=== PATIENT | female | born 1940 | race Caucasian/White ===

== ENCOUNTER 2018-05-01 05:24 | Day surgery (SDC) | payer OTHER ==
[2018-05-01] MEDS ORDERED: morphine SULFATE/PF (10 MG/10 ML) INJ (07:00)
[2018-05-01] MEDS ORDERED: PROPOFOL 20 ML (07:45)
[2018-05-01] MEDS ORDERED: MIDAZOLAM 1 MG/ML 2 ML INJ (07:45)
[2018-05-01] MEDS ORDERED: CEFAZOLIN 1 GM INJ (07:45)
[2018-05-01] MEDS ORDERED: ROCURONIUM 50 MG INJ (07:45)
[2018-05-01] MEDS ORDERED: ROPIVACAINE 0.5 % 30 ML VIAL (07:46)
[2018-05-01] MEDS ORDERED: FENTAnyl 50 MCG/ML VIAL (07:46)
[2018-05-01] MEDS ORDERED: PHENYLephrine (100 MCG/ML) 5ML SYG ×2 (08:01→09:20)
[2018-05-01] MEDS: EPINEPHrine 1 MG/ML 30 ML INJ IRR (08:30)
[2018-05-01] MEDS: morphine SULFATE/PF (10 MG/10 ML) INJ (08:30)
[2018-05-01] MEDS ORDERED: hydrALAzine 20 MG INJ IV (09:00)
[2018-05-01] MEDS ORDERED: METOCLOPRAMIDE 10 MG INJ IV (09:00)
[2018-05-01] MEDS ORDERED: ONDANSETRON 4 MG INJ IV (09:00)
[2018-05-01] MEDS ORDERED: EPHEDrine SULFATE 50 MG/5 ML SYG IV (09:00)
[2018-05-01] MEDS ORDERED: MEPERIDINE 25 MG INJ IV (09:00)
[2018-05-01] MEDS ORDERED: DIPHENHYDRAMINE 50 MG INJ IV (09:00)
[2018-05-01] MEDS ORDERED: OXYCODONE/ACETAMINOPHEN (5/325) TAB PO ×2 (09:00)
[2018-05-01] MEDS ORDERED: LABETALOL HCL 20MG INJ IV (09:00)
[2018-05-01] MEDS ORDERED: FENTAnyl 50 MCG/ML VIAL IV ×2 (09:00)
[2018-05-01] MEDS ORDERED: HYDROmorphONE 1 MG/5 ML IV SYRINGE IV ×2 (09:00)
[2018-05-01] MEDS ORDERED: METOCLOPRAMIDE 10 MG INJ (09:07)
[2018-05-01] MEDS ORDERED: DEXAMETHASONE 4 MG/ML 1 ML INJ ×2 (09:07)
[2018-05-01] MEDS ORDERED: ONDANSETRON 4 MG INJ (09:07)
[2018-05-01] MEDS ORDERED: ACETAMINOPHEN 1000MG/100ML IV 100 ML (09:07)
[2018-05-01] MEDS ORDERED: KETOROLAC 30 MG INJ (09:07)
[2018-05-01] MEDS ORDERED: GLYCOPYRROLATE 0.4 MG INJ (09:54)
[2018-05-01] MEDS ORDERED: NEOSTIGMINE 3 MG/3 ML SYRINGE (09:54)
[2018-05-01] MEDS ORDERED: HETASTARCH 6% NACL 500 ML (10:00)
[2018-05-01] MEDS ORDERED: EPHEDrine SULFATE 50 MG/5 ML SYG (10:01)
[2018-05-01] MEDS: FENTAnyl 50 MCG/ML VIAL IV (11:13)
== END 2018-05-01 12:50 | disposition home or self-care (01) ==
LOC: SDS 05:24
DX: M75.101 Unspecified rotator cuff tear or rupture of right shoulder, not specified as traumatic (principal); S43.431D Superior glenoid labrum lesion of right shoulder, subsequent encounter; X58.XXXD Exposure to other specified factors, subsequent encounter; E11.9 Type 2 diabetes mellitus without complications; I10 Essential (primary) hypertension
CPT/HCPCS: 29807; 82962